=== PATIENT | female | born 1940 | race Caucasian/White ===

== ENCOUNTER 2023-05-16 17:26 | Inpatient (IN) | payer MEDICARE ==
[~2023-05-16] VITALS: Ht 170.2 cm; Wt 68.0 kg
[2023-05-16 18:36] LABS: BILIRUBIN,URINE NEGATIVE (NEGATIVE); COLOR,URINE YELLOW (YELLOW); LEUKOCYTE ESTERASE ,URINE NEGATIVE (NEGATIVE); NITRITE, URINE NEGATIVE (NEGATIVE); PH,URINE 5.5 (5.0-8.0); PROTEIN,URINE NEGATIVE (NEGATIVE); UGLUCOSE NEGATIVE (NEGATIVE); UROBILINOGEN,URINE 0.2 EU/dL (0.2)
[2023-05-16 18:50] LABS: BACTERIA,URINE None seen /HPF (None Seen); SQUAMOUS EPITHELIAL CELL,UR 0-2 /HPF (None Seen); WBC,URINE 0-2 /HPF (0-3)
[2023-05-16 18:53] LABS: BASOPHILS % (AUTO) 1.1 % (0.0-2.0); EOSINOPHILS % (AUTO) 0.2 % (0.0-6.0); HEMATOCRIT 40 % (33-45); HEMOGLOBIN 12.9 g/dL (11.5-14.8); LYMPHOCYTES # (AUTO) 0.8 K/uL (0.8-4.8); LYMPHOCYTES % (AUTO) 20.2 % (20.0-44.0); MEAN CORPUSCULAR HGB CONC 33 g/dl (31.0-36.0); MEAN CORPUSCULAR VOLUME 85 fL (82-100); MONOCYTES # (AUTO) 0.4 K/uL (0.1-1.30); MONOCYTES % (AUTO) 10.9 % (2.0-12.0); NEUTROPHILS # (AUTO) 2.6 K/uL (1.8-8.9); NEUTROPHILS % (AUTO) 67.6 % (43.0-81.0); PLATELET COUNT (AUTO) 152 K/uL (150-450); RED BLOOD CELL COUNT(AUTO) 4.67 MIL/uL (4.0-5.2); WHITE BLOOD COUNT (AUTO) 3.9 K/uL (4.3-11.0)
[2023-05-16 19:27] LABS: CALCIUM, SERUM 10.1 mg/dL (8.5-10.1); CARBON DIOXIDE 27 mmol/L (21-32); CHLORIDE 107 mmol/L (98-107); CREATININE 1.1 mg/dL (0.6-1.3); GLUCOSE 117 mg/dL (74-106); POTASSIUM 3.9 mmol/L (3.5-5.1); SODIUM SERUM 145 mmol/L (136-145); UREA NITROGEN, BLOOD 19 mg/dL (7-18)
[2023-05-16 19:31] LABS: ALANINE AMINOTRANSFERASE 37 U/L (12-78); ALBUMIN 3.9 g/dL (3.4-5.0); ALCOHOL, BLOOD < 3 mg/dL (0-10); ALKALINE PHOSPHATASE 85 U/L (46-116); ASPARTATE AMINOTRANSFERASE 25 U/L (15-37); BILIRUBIN,DIRECT 0.1 mg/dL (0.0-0.2); BILIRUBIN,TOTAL 0.6 mg/dL (0.2-1.0); TOTAL PROTEIN, SERUM 7.9 g/dL (6.4-8.2)
[2023-05-16] MEDS ORDERED: MIRT-121 PO (21:07)
[2023-05-16] MEDS ORDERED: ESCI10TA PO (21:07)
[2023-05-16] MEDS ORDERED: QUET25TA PO (21:07)
[2023-05-16] MEDS ORDERED: AMLO-213 PO (21:58)
[2023-05-16] MEDS ORDERED: TEMAZEPAM 7.5 MG CAPSULE PO PRN (22:00)
[2023-05-16] MEDS ORDERED: MAG HYDROX/AL HYDROX/SIMETH 30 ML UDC PO PRN (22:00)
[2023-05-16] MEDS ORDERED: clonazePAM 0.5 MG TABLET PO PRN (22:00)
[2023-05-16] MEDS ORDERED: MAGNESIUM HYDROXIDE 30 ML UDC PO PRN (22:00)
[2023-05-16] MEDS: ACETAMINOPHEN 325 MG TABLET PO PRN (22:22)
[2023-05-16] MEDS ORDERED: BLOOD SUGAR DIAGNOSTIC 1 EACH STRIP IN ONE (22:30)
[2023-05-16 22:38] VITALS: BP 135/74; TEMP 98; O2SAT 98
[2023-05-17 08:00] VITALS: BP 157/65; TEMP 98; O2SAT 99
[2023-05-17] MEDS: AMLODIPINE BESYLATE 10 MG TABLET PO SCH (10:37)
[2023-05-17] MEDS: ARIPIPRAZOLE 2 MG TABLET PO SCH (14:00)
[2023-05-17] MEDS: LISINOPRIL (10MG) 10 MG TABLET PO SCH (15:37)
[2023-05-17 16:00] VITALS: BP 167/79; TEMP 98.8; O2SAT 97
[2023-05-17] MEDS ORDERED: MIRTAZAPINE 15 MG TABLET PO SCH (18:00)
[2023-05-17 20:20] VITALS: BP 150/72; TEMP 98.4; O2SAT 97
[2023-05-17] MEDS: MIRTAZAPINE 15 MG TABLET PO SCH (21:54)
[2023-05-18 07:11] LABS: BASOPHILS % (AUTO) 1.4 % (0.0-2.0); EOSINOPHILS % (AUTO) 0.8 % (0.0-6.0); HEMATOCRIT 36 % (33-45); HEMOGLOBIN 11.6 g/dL (11.5-14.8); MEAN CORPUSCULAR HGB CONC 33 g/dl (31.0-36.0); MEAN CORPUSCULAR VOLUME 86 fL (82-100); MONOCYTES # (AUTO) 0.5 K/uL (0.1-1.30); MONOCYTES % (AUTO) 15.2 % (2.0-12.0); NEUTROPHILS # (AUTO) 1.6 K/uL (1.8-8.9); NEUTROPHILS % (AUTO) 50.6 % (43.0-81.0); PLATELET COUNT (AUTO) 139 K/uL (150-450); RED BLOOD CELL COUNT(AUTO) 4.14 MIL/uL (4.0-5.2); WHITE BLOOD COUNT (AUTO) 3.2 K/uL (4.3-11.0)
[2023-05-18 07:34] LABS: ALBUMIN 3.1 g/dL (3.4-5.0); BILIRUBIN,TOTAL 0.5 mg/dL (0.2-1.0); CALCIUM, SERUM 9.4 mg/dL (8.5-10.1); CREATININE 0.9 mg/dL (0.6-1.3); POTASSIUM 3.6 mmol/L (3.5-5.1); TOTAL PROTEIN, SERUM 6.5 g/dL (6.4-8.2)
[2023-05-18 08:00] VITALS: BP 177/69; TEMP 97.5; O2SAT 94
[2023-05-18] MEDS: LISINOPRIL (10MG) 10 MG TABLET PO SCH (08:25)
[2023-05-18] MEDS: AMLODIPINE BESYLATE 10 MG TABLET PO SCH (08:26)
[2023-05-18] MEDS: ARIPIPRAZOLE 2 MG TABLET PO SCH (08:26)
[2023-05-18 16:00] VITALS: BP 159/65; TEMP 98; O2SAT 96
[2023-05-18 20:20] VITALS: BP 149/56; TEMP 97.8; O2SAT 97
[2023-05-18] MEDS: MIRTAZAPINE 15 MG TABLET PO SCH (21:04)
[2023-05-19 08:00] VITALS: BP 160/56; TEMP 97.5; O2SAT 97
[2023-05-19] MEDS: AMLODIPINE BESYLATE 10 MG TABLET PO SCH (08:09)
[2023-05-19] MEDS: ARIPIPRAZOLE 2 MG TABLET PO SCH (08:10)
[2023-05-19] MEDS: LISINOPRIL (10MG) 10 MG TABLET PO SCH (08:10)
[2023-05-19] MEDS ORDERED: ARIPIPRAZOLE 2 MG TABLET PO ONE (09:00)
[2023-05-19 16:00] VITALS: BP 147/65; TEMP 97.4; O2SAT 97
[2023-05-19 20:28] VITALS: BP 157/72; TEMP 97.9; O2SAT 96
[2023-05-19] MEDS: MIRTAZAPINE 15 MG TABLET PO SCH (21:13)
[2023-05-20 08:00] VITALS: BP 170/72; TEMP 98.1; O2SAT 97
[2023-05-20] MEDS: LISINOPRIL (10MG) 10 MG TABLET PO SCH (08:32)
[2023-05-20] MEDS: AMLODIPINE BESYLATE 10 MG TABLET PO SCH (08:33)
[2023-05-20] MEDS: ARIPIPRAZOLE 2 MG TABLET PO SCH (08:56)
[2023-05-20 16:00] VITALS: BP 148/60; TEMP 97.9; O2SAT 98
[2023-05-20 19:06] LABS: THYROID STIMULATING HORMONE 2.904 uIU/mL (0.358-3.74)
[2023-05-20 20:23] VITALS: BP 176/77; TEMP 98; O2SAT 97
[2023-05-20 20:40] VITALS: BP 157/63; TEMP 98; O2SAT 97
[2023-05-20] MEDS: MIRTAZAPINE 15 MG TABLET PO SCH (21:59)
[2023-05-21 08:00] VITALS: BP 131/53; TEMP 98.6; O2SAT 96
[2023-05-21] MEDS: LISINOPRIL (10MG) 10 MG TABLET PO SCH (09:16)
[2023-05-21] MEDS: AMLODIPINE BESYLATE 10 MG TABLET PO SCH (09:16)
[2023-05-21] MEDS: ARIPIPRAZOLE 2 MG TABLET PO SCH (09:18)
[2023-05-21 16:00] VITALS: BP 130/82; TEMP 98.6; O2SAT 96
[2023-05-21 20:00] VITALS: BP 147/76; TEMP 98.4; O2SAT 96
[2023-05-21] MEDS: MIRTAZAPINE 15 MG TABLET PO SCH (21:46)
[2023-05-22 08:00] VITALS: BP 150/70; TEMP 98.1; O2SAT 96
[2023-05-22] MEDS: ARIPIPRAZOLE 2 MG TABLET PO SCH (08:04)
[2023-05-22] MEDS: LISINOPRIL (10MG) 10 MG TABLET PO SCH (08:05)
[2023-05-22] MEDS: AMLODIPINE BESYLATE 10 MG TABLET PO SCH (08:05)
[2023-05-22 16:00] VITALS: BP 153/77; TEMP 98.1; O2SAT 98
[2023-05-22 20:00] VITALS: BP 156/80; TEMP 98.1; O2SAT 100
[2023-05-22] MEDS: MIRTAZAPINE 15 MG TABLET PO SCH (21:10)
[2023-05-23 08:00] VITALS: BP 152/63; TEMP 97.8; O2SAT 94
[2023-05-23] MEDS: AMLODIPINE BESYLATE 10 MG TABLET PO SCH (10:31)
[2023-05-23] MEDS: LISINOPRIL (10MG) 10 MG TABLET PO SCH (10:31)
[2023-05-23] MEDS: ARIPIPRAZOLE 2 MG TABLET PO SCH (10:33)
[2023-05-23 16:00] VITALS: BP 160/72; TEMP 97.8; O2SAT 97
[2023-05-23 20:00] VITALS: BP 141/68; TEMP 97.5; O2SAT 97
[2023-05-23] MEDS: MIRTAZAPINE 15 MG TABLET PO SCH (21:53)
[2023-05-24 08:00] VITALS: BP 160/74; TEMP 97.8; O2SAT 95
[2023-05-24] MEDS: LISINOPRIL (10MG) 10 MG TABLET PO SCH (08:46)
[2023-05-24] MEDS: ARIPIPRAZOLE 2 MG TABLET PO SCH (08:46)
[2023-05-24] MEDS: AMLODIPINE BESYLATE 10 MG TABLET PO SCH (08:46)
[2023-05-24 16:00] VITALS: BP 145/71; TEMP 98.6; O2SAT 98
[2023-05-24 20:00] VITALS: BP 149/75; TEMP 97.6; O2SAT 96
[2023-05-24] MEDS: MIRTAZAPINE 15 MG TABLET PO SCH (21:29)
[2023-05-25 08:00] VITALS: BP 168/86; TEMP 97.8; O2SAT 97
[2023-05-25] MEDS: LISINOPRIL (10MG) 10 MG TABLET PO SCH (08:15)
[2023-05-25] MEDS: ARIPIPRAZOLE 2 MG TABLET PO SCH ×3 (08:15→17:00)
[2023-05-25] MEDS: AMLODIPINE BESYLATE 10 MG TABLET PO SCH (08:16)
[2023-05-25 09:42] VITALS: BP 119/59
[2023-05-25 16:00] VITALS: BP 154/72; TEMP 98; O2SAT 98
[2023-05-25] MEDS: MIRTAZAPINE 15 MG TABLET PO SCH (21:30)
[2023-05-26 08:00] VITALS: BP 150/76; TEMP 97.8; O2SAT 96
[2023-05-26] MEDS: ARIPIPRAZOLE 2 MG TABLET PO SCH ×2 (09:16→18:23)
[2023-05-26] MEDS: AMLODIPINE BESYLATE 10 MG TABLET PO SCH (09:17)
[2023-05-26] MEDS: LISINOPRIL (10MG) 10 MG TABLET PO SCH ×3 (09:17→18:30)
[2023-05-26] MEDS: ACETAMINOPHEN 325 MG TABLET PO PRN (14:07)
[2023-05-26 15:53] VITALS: BP 104/75; TEMP 97.7; O2SAT 96
[2023-05-26 16:00] VITALS: BP 154/75; TEMP 97.7; O2SAT 98
[2023-05-26] MEDS: MIRTAZAPINE 15 MG TABLET PO SCH (21:16)
[2023-05-27 08:00] VITALS: BP 167/79; TEMP 98.6; O2SAT 97
[2023-05-27] MEDS: LISINOPRIL (10MG) 10 MG TABLET PO SCH ×2 (08:19→16:37)
[2023-05-27] MEDS: AMLODIPINE BESYLATE 10 MG TABLET PO SCH (08:19)
[2023-05-27] MEDS: ARIPIPRAZOLE 2 MG TABLET PO SCH ×2 (08:55→16:37)
[2023-05-27 16:00] VITALS: BP 161/75; TEMP 98.6; O2SAT 96
[2023-05-27] MEDS: MIRTAZAPINE 15 MG TABLET PO SCH (21:04)
[2023-05-27] MEDS: ACETAMINOPHEN 325 MG TABLET PO PRN (23:33)
[2023-05-28 00:31] VITALS: BP 165/88; TEMP 97.4; O2SAT 94
[2023-05-28 08:00] VITALS: BP 145/62; TEMP 97.9; O2SAT 98
[2023-05-28] MEDS: ARIPIPRAZOLE 2 MG TABLET PO SCH ×2 (09:14→16:23)
[2023-05-28] MEDS: LISINOPRIL (10MG) 10 MG TABLET PO SCH (09:15)
[2023-05-28] MEDS: AMLODIPINE BESYLATE 10 MG TABLET PO SCH (09:15)
[2023-05-28 16:00] VITALS: BP 148/67; TEMP 98.7; O2SAT 99
[2023-05-28] MEDS: LISINOPRIL (20MG) 20 MG TABLET PO SCH (16:23)
[2023-05-28 20:00] VITALS: BP 166/81; TEMP 97.5; O2SAT 98
[2023-05-28] MEDS: MIRTAZAPINE 15 MG TABLET PO SCH (21:07)
[2023-05-28] MEDS: ACETAMINOPHEN 325 MG TABLET PO PRN (23:37)
[2023-05-29 08:00] VITALS: BP 151/65; TEMP 98; O2SAT 100
[2023-05-29] MEDS: AMLODIPINE BESYLATE 10 MG TABLET PO SCH (09:23)
[2023-05-29] MEDS: LISINOPRIL (20MG) 20 MG TABLET PO SCH ×2 (09:23→16:32)
[2023-05-29] MEDS: ARIPIPRAZOLE 2 MG TABLET PO SCH ×2 (09:24→16:32)
[2023-05-29 16:00] VITALS: BP 141/64; TEMP 98.2; O2SAT 100
[2023-05-29 20:00] VITALS: BP 138/67; TEMP 97.6; O2SAT 97
[2023-05-29] MEDS: MIRTAZAPINE 15 MG TABLET PO SCH (21:46)
[2023-05-30 08:00] VITALS: BP 159/79; TEMP 97.8; O2SAT 94
[2023-05-30] MEDS: ARIPIPRAZOLE 2 MG TABLET PO SCH ×2 (08:30→16:50)
[2023-05-30] MEDS: LISINOPRIL (20MG) 20 MG TABLET PO SCH ×2 (08:31→16:50)
[2023-05-30] MEDS: AMLODIPINE BESYLATE 10 MG TABLET PO SCH (08:31)
[2023-05-30 16:00] VITALS: BP 141/75; TEMP 98; O2SAT 97
[2023-05-30 20:00] VITALS: BP 135/71; TEMP 97.7; O2SAT 95
[2023-05-30] MEDS: MIRTAZAPINE 15 MG TABLET PO SCH (21:32)
[2023-05-31 08:00] VITALS: BP 146/74; TEMP 97.8; O2SAT 94
[2023-05-31] MEDS: ARIPIPRAZOLE 2 MG TABLET PO SCH (08:13)
[2023-05-31] MEDS: LISINOPRIL (20MG) 20 MG TABLET PO SCH (08:14)
[2023-05-31] MEDS ORDERED: NIFEDIPINE XL 60 MG TAB.ER.24 PO SCH (09:00)
[2023-05-31 13:30] VITALS: BP 146/73; TEMP 97.8; O2SAT 98
== END 2023-05-31 15:35 | DRG 885 ==
LOC: ER 17:40 → GPS 20:34
PROVIDERS: ADMIT Psychiatry & Neurology Psychiatry; ATTEND Student in an Organized Health Care Education/Training Program
DX: F33.3 Major depressive disorder, recurrent, severe with psychotic symptoms (principal); R45.851 Suicidal ideations; F02.811 Dementia in other diseases classified elsewhere, unspecified severity, with agitation; F03.93 Unspecified dementia, unspecified severity, with mood disturbance; R45.850 Homicidal ideations; G31.9 Degenerative disease of nervous system, unspecified; I11.9 Hypertensive heart disease without heart failure; I70.0 Atherosclerosis of aorta; Z79.899 Other long term (current) drug therapy
CPT/HCPCS: 36415; 70450-TC; 71045-TC; 80048-TC; 80053-TC; 80061-TC; 80076-TC; 81001; 82607-TC; 84443-TC; 85025-TC; 87081-TC; 97116-TC; 97530-TC; G0480